=== PATIENT | male | born 1970 | race Caucasian/White ===

== ENCOUNTER 2024-08-11 03:45 | Observation (INO) ==
[2024-08-11] MEDS: IPRATROPIUM/ALBUTEROL SULFATE 3 ML AMPUL.NEB INH ONE ×2 (04:09→06:08)
[2024-08-11] MEDS: METHYLPREDNISOLONE SOD SUCC/PF 125 MG/2 ML VIAL IVP ONE (04:11)
[2024-08-11 04:25] LABS: Basophils #(Absolute) Auto 0.1 (0.0-0.1); Basophils%(Percent) Auto 1.1 (0.0-1.3); Eosinophils#(Absolute)Auto 0.3 (0.0-0.3); Eosinophils%(Percent) Auto 2.7 % (0.0-4.0); Granulocytes % - Auto 71.1 % (49.1-73.1); Granulocytes#(Absolute)- Auto 7.4 (2.0-6.2); Hematocrit 40.8 % (41.3-50.1); Monocytes #(Absolute)- Auto 0.7 (0.2-0.8); Monocytes %(Percent)- Auto 6.3 % (4.5-10.7); Platelet Count 250 K/uL (142-355); White Blood Count 10.4 K/uL (3.7-9.6)
[2024-08-11 05:24] LABS: Potassium 3.9 mmol/L (3.6-5.2)
[2024-08-11] MEDS: ONDANSETRON HCL/PF 4 MG/2 ML VIAL IVP ONE (05:57)
--- NOTE | 2024-08-11 05:58 | Emergency Department Note ---
HPI - General Adult General Chief complaint: SOB -Shortness of Breath Stated complaint: difficulty breathing Time Seen by Provider: 08/11/24 05:53 Source: patient Mode of arrival: walk-in Limitations: no limitations History of Present Illness HPI narrative: This is s a 53 year old male patient that presents to the ER with c/o cough, congestion, nausea and SOB. patient denies back pain, abdominal pain, chest pain , numbness, tingling or weakness. patient states his cough is a dry hacky cough Onset (ago): day(s) (2) Associated symptoms: Reports cough and shortness of breath Treatments prior to arrival: Reports none Related Data Previous Rx's Medication Instructions Recorded erythromycin 5 mg/gram (0.5 %) eye 0.5 inch ophthalmic (eye) TID 12/11/23 ointment abrasion #3.5 grams ketorolac 10 mg tablet 10 mg PO Q6H PRN pain #20 ta bs 05/06/24 ondansetron 4 mg disintegrating 4 mg PO Q6H PRN nausea and 06/09/24 tablet vomiting #12 tabs tramadol 50 mg tablet 50 mg PO TID PRN pain #15 ta bs 06/09/24 Allergies Allergy/AdvReac Type Severity Reaction Status Date / Time No Known Drug Allergies Allergy Verified 08/11/24 03:54 Review of Systems Status of ROS 10 or more systems reviewed and unremark able except as noted in history and below Constitutional Denies: fever, chills, change in weight, fatigue, malaise, night sweats or change in sleep pattern Eyes Denies: change in vision, blurry vision, blind spots, light sensitivity, eye discomfort, eye discharge or dry eyes Ears, nose, mouth, and throat Denies: throat pain, neck pain, throat swelling, difficulty swallowing, hoarseness, mouth pain, swelling of lips/tongue or dry mouth Cardiovascular Reports: shortness of breath with exertion; Denies: chest pain, palpitations, edema, swelling of feet/ankles, lightheadedness, shortness of breath when lying down, leg pain with exertion or bluish discoloration of hands/feet Respiratory Reports: shortness of breath, cough and wheezing; Denies: stridor, pain on inspiration, change in phlegm color or coughing up blood Gastrointestinal Denies: abdominal pain, nausea, vomiting, coffee grounds in vomit, heartburn, diarrhea, constipation or bloating Genitourinary Denies: painful urination, urinary frequency, urinary urgency, blood in urine, genital pain or genital lesion Musculoskeletal Denies: back pain, neck pain, extremity pain, extremity swelling, joint pain, limited range of motion or joint swelling Integumentary/Breast Denies: rash, itching, redness, skin pain, skin ten derness, skin swelling, sores or new lesion Neurological Denies: headache, numbness in extremities, weakness in extremities, lack of coordination, dizziness, vertigo or confusion Psychiatric Denies: anxiety, mood swings, panic attacks, change in sleep pattern, hopelessness or loss of interest Endocrine Denies: excessive urination, excessive thirst, fatigue, cold intolerance or excessive sweating Hematologic/Lymphatic Denies: easy bruising, easy bleeding or enlarged lymph nodes Allergic/Immunologic Denies: hives, throat swelling, tongue swelling, facial swelling, wheezing or itchy eyes PFSH PFS Medical History Patient denies medical problems Surgical History No significant past surgical history Social History (Updated 12/11/23 @ 14:59 by Chuck Serrano NP) Smoking status: current every day smoker Feel stressed/tense/nervous/anxious/difficulty sleeping: rather much Life stressors: other Life stressor details: 1 Due to disability, difficulty making decisions: No Exam Constitutional: normal general appearance and no apparent distress Vital Signs - 24 hr 08/11/24 03:53 08/11/24 04:21 08/11/24 04:30 Temperature 97.5 F L 97.5 F L Pulse Rate 110 H 78 Respiratory Rate 22 20 Blood Pressure 124/94 129/93 Pulse Oximetry 94 L 94 L 94 L Oxygen Delivery Me thod Room Air Room Air 08/11/24 05:00 08/11/24 05:30 08/11/24 06:00 Temperature 97.5 F L Pulse Rate 55 L 68 63 Respiratory Rate 22 22 22 Blood Pressure 128/87 124/94 135/89 Pulse Oximetry 94 L 94 L 94 L Oxygen Delivery Me thod Room Air Room Air Room Air 08/11/24 06:08 08/11/24 06:31 08/11/24 07:00 Temperature 97.9 F Pulse Rate 58 L 99 H Respiratory Rate 24 20 Blood Pressure 143/92 129/74 Pulse Oximetry 94 L 94 L 94 L Oxygen Delivery Me thod Room Air 08/11/24 07:49 08/11/24 09:00 Temperature Pulse Rate 88 Respiratory Rate Blood Pressure 126/90 Pulse Oximetry 97 95 Oxygen Delivery Pa thod Room Air HENMT: normocephalic, head/scalp atraumatic, hearing grossly normal bilaterally, external ears normal, EACs normal, nasal mucous membranes normal, external nose normal, oral mucous membranes normal and oropharynx normal Eyes: PERRL, EOMs intact bilaterally, conjunctivae normal and no scleral icterus Neck/C-Spine: visual inspection normal and trachea midline Lymph: no lymphadenopathy noted Chest: inspection of chest normal and palpation of chest normal Respiratory: breath sounds equal bilaterally, normal respiratory effort, auscultation abnormal (diminished breath sound), wheezing noted (scattered wheezes), no rales, no retractions, no use of accessory muscles and chest percussion normal Cardiovascular: normal heart rate noted, regular rhythm noted, no gallop, no rub, no murmur, no JVD, no clicks, peripheral pulses 2+ throughout, no bruits noted and no additional abnormal heart sounds Gastrointestinal: abdomen normal to inspection, abdomen soft to palpation, nontender to palpation, nontender to percussion, nondistended, normoactive bowel sounds, no hepatosplenomegaly, no masses, no pulsatile mass, no ascites and no hernia Genitourinary: no CVA tenderness Back/Pelvis: spine normal to inspection Extremities: normal to inspection, normal to palpation, no tenderness, full R OM and no joint enlargement Neurology: no movement abnormality noted, no focal motor deficit noted, no sensory deficits noted, gait normal, speech normal, coordination normal, no pronator drift noted, no fasciculations noted and GCS normal Psychiatry: mental status grossly normal, oriented x3, thought process normal and cooperative Skin: skin color normal Course Course Hospital Course: 711: patient LS improved after meds and nebs, patient states he still feels a little SOB, new orders given 0800: signed patient over to Collin Magana [employer]ACH[employer]ER for continued care Patient turned over to va at shift change. Repeat Troponin again trending downards. Likely first elevated troponin secondary to demand ischemia from respiratory distress/COPD exacerbation. CXR, CTA, labs reviewed. Patient discussed with UR and Hospitalist for admission to observation for further treatment regarding COPD exacerbation. Reevaluation(s) Reevaluation #1: Discussed pending troponin repeat and admission vs transfer. Patient resistant to admission but states "I'll stay if I need to." Resting comfortably, in no distress. Time: 08:41 Vital Signs Vital signs: Vital Signs Temperature 97.5 F L 08/11/24 03:53 Pulse Rate 110 H 08/11/24 03:53 Respiratory Rate 22 08/11/24 03:53 Blood Pressure 124/94 08/11/24 03:53 Pulse Oximetry 94 L 08/11/24 03:53 Oxygen Delivery Method Room Air 08/11/24 03:53 Temperature 97.9 F 08/11/24 06:31 Pulse Rate 88 08/11/24 09:00 Respiratory Rate 20 08/11/24 07:00 Blood Pressure 126/90 08/11/24 09:00 Pulse Oximetry 95 08/11/24 09:00 Oxygen Delivery Method Room Air 08/11/24 09:00 Medical Decision Making Lab Data Labs: Lab Results 08/11/24 08/11/24 08/11/24 Range/Units 04:00 04:15 06:35 WBC 10.4 H (3.7-9.6) K/uL RBC 4.8 (4.40-5.80) M/uL Hgb 13.4 L (14.0-17.4) gm/dL Hct 40.8 L (41.3-50.1) % MCV 86.0 (81.9-96.5) fl MCH 28.2 (27.6-33.7) pg MCHC 32.8 L (33.0-35.7) g/dl RDW 14.1 (11.0-14.8) % Plt Count 250 (142-355) K/uL MPV 9.5 (6.0-10.4) fl Gran % 71.1 (49.1-73.1) % Lymph % (Auto) 18.8 (17.6-39.05) % [place] % (Auto) 6.3 (4.5-10.7) % Eos % (Auto) 2.7 (0.0-4.0) % Baso % (Auto) 1.1 (0.0-1.3) Lymph # (Auto) 2.0 (0.8-2.9) [place] # (Auto) 0.7 (0.2-0.8) Eos # (Auto) 0.3 (0.0-0.3) Baso # (Auto) 0.1 (0.0-0.1) Absolute Gran (auto) 7.4 H (2.0-6.2) D-Dimer 533 (100-600) ng/mL Sodium 143 (136-145) mmol/L Potassium 3.9 (3.6-5.2) mmol/L Chloride 111.0 H (98-107) mmol/L Carbon Dioxide 21 (21-32) mmol/L Anion Gap 11.0 (4-14) mEq/L BUN 27 H (7-18) mg/dL Creatinine 1.1 (0.6-1.3) mg/dL Estimated GFR 80.8 (>59.9) Glucose 83 (70-110) mg/dL Lactic Acid 0.8 (0.27-1.43) mmol/L Calcium 8.3 L (8.5-10.1) mg/dL Total Bilirubin 0.53 (0.0-1.0) mg/dL AST 18 (15-37) U/L ALT 30 (30-65) U/L Alkaline Phosphatase 110 (50-136) U/L Troponin I High Sens 70.60 H* 59.10 (4.0-60.4) ng/L B-Natriuretic Peptide 105.0 H (0-100) pg/mL Total Protein 6.8 (6.4-8.2) g/dL Albumin 3.3 L (3.4-5.0) g/dL COVID-19 ([facility]) Not detected (Not Detectd) Influenza Type A Ag Negative (Negative) Influenza Type B Ag Negative (Negative) 08/11/24 Range/Units 08:40 WBC (3.7-9.6) K/uL RBC (4.40-5.80) M/uL Hgb (14.0-17.4) gm/dL Hct (41.3-50.1) % MCV (81.9-96.5) fl MCH (27.6-33.7) pg MCHC (33.0-35.7) g/dl RDW (11.0-14.8) % Plt Count (142-355) K/uL MPV (6.0-10.4) fl Gran % (49.1-73.1) % Lymph % (Auto) (17.6-39.05) % [place] % (Auto) (4.5-10.7) % Eos % (Auto) (0.0-4.0) % Baso % (Auto) (0.0-1.3) Lymph # (Auto) (0.8-2.9) [place] # (Auto) (0.2-0.8) Eos # (Auto) (0.0-0.3) Baso # (Auto) (0.0-0.1) Absolute Gran (auto) (2.0-6.2) D-Dimer (100-600) ng/mL Sodium (136-145) mmol/L Potassium (3.6-5.2) mmol/L Chloride (98-107) mmol/L Carbon Dioxide (21-32) mmol/L Anion Gap (4-14) mEq/L BUN (7-18) mg/dL Creatinine (0.6-1.3) mg/dL Estimated GFR (>59.9) Glucose (70-110) mg/dL Lactic Acid (0.27-1.43) mmol/L Calcium (8.5-10.1) mg/dL Total Bilirubin (0.0-1.0) mg/dL AST (15-37) U/L ALT (30-65) U/L Alkaline Phosphatase (50-136) U/L Troponin I High Sens 43.90 (4.0-60.4) ng/L B-Natriuretic Peptide (0-100) pg/mL Total Protein (6.4-8.2) g/dL Albumin (3.4-5.0) g/dL COVID-19 ([facility]) (Not Detectd) Influenza Type A Ag (Negative) Influenza Type B Ag (Negative) Critical Care Time Critical Care Time Critical Care Time: Yes Total Critical Care Time: 45 Attestation: I spent 45 minutes of critical care time with this patient, exclusive of any procedures. Discharge Plan Discharge Patient Disposition: Admitted As Observation Condition: Stable Clinical Impression: Chronic obstructive pulmonary disease with acute exacerbation, Acute respiratory distress syndrome Time of Disposition: 09:44
[2024-08-11] MEDS: BUDESONIDE 0.5 MG/2 ML AMPUL.NEB INH ONE (06:08)
[2024-08-11] MEDS ORDERED: CEFTRIAXONE SODIUM 1 GM VIAL ONE (07:07)
[2024-08-11] MEDS ORDERED: 0.9 % SODIUM CHLORIDE MB+ 50 ML IV ONE (07:07)
[2024-08-11] MEDS: CEFTRIAXONE SODIUM 1 GM in 0.9 % SODIUM CHLORIDE MB+ 50 ML IV ONE (07:09)
[2024-08-11] MEDS: levalbuterol HCL 1.25 MG/3 ML VIAL.NEB INH ONE (07:49)
[2024-08-11] MEDS ORDERED: ACETAMINOPHEN 500 MG TABLET PO PRN (12:18)
[2024-08-11] MEDS ORDERED: ONDANSETRON HCL/PF 4 MG/2 ML VIAL INJ PRN (12:18)
[2024-08-11] MEDS ORDERED: DOCUSATE SODIUM 100 MG CAPSULE PO PRN (13:30)
[2024-08-11] MEDS ORDERED: MAGNESIUM, ALUMINUM HYDROXIDE 30 ML ORAL.SUSP PO PRN (13:30)
[2024-08-11] MEDS: CEFTRIAXONE SODIUM 1 GM in 0.9 % SODIUM CHLORIDE MB+ 50 ML IV SCH (14:42)
[2024-08-11] MEDS: METHYLPREDNISOLONE SOD SUCC/PF 40 MG/ML VIAL INJ SCH (15:13)
[2024-08-11] MEDS: AZITHROMYCIN 250 MG TABLET PO SCH (15:13)
--- NOTE | 2024-08-11 15:38 | History & Physical Report ---
H&P: HPI History of Present Illness Chief complaint: COPD ACUTE EXACERBATION, ACUTE RESP DISTRESS,ELEVA Narrative: Mr. Lara was admitted on 08/11/24 with acute SOB that started during the night. Labs unremarkable. CXR, CTA did show emphysema and negative for PE. Patient does smoke 1-2 ppd denies hx of lung disease or any other medical hx other than back pain. He does admit to some cough with green sputum which he attributes to smoking. He no longer has seen PCP and last saw one last year with normal findi ngs. He does not use home O2 but was placed on O2 in the ED, received mag, nebs, and solumedrol which he did have some relief. Review of Systems Status of ROS 10 or more systems reviewed and unremark able except as noted in history and below Constitutional Denies: fever, chills, change in weight, fatigue, malaise, night sweats or change in sleep pattern Eyes Denies: change in vision, blurry vision, blind spots, light sensitivity, eye discomfort, eye discharge or dry eyes Ears, nose, mouth, and throat Denies: throat pain, neck pain, throat swelling, difficulty swallowing, hoarseness, mouth pain, swelling of lips/tongue, dry mouth or vertigo Cardiovascular Reports: shortness of breath with exertion; Denies: chest pain, palpitations, edema, swelling of feet/ankles, lightheadedness, shortness of breath when lying down, leg pain with exertion or bluish discoloration of hands/feet Respiratory Reports: shortness of breath and cough; Denies: wheezing, stridor, pain on inspiration, change in phlegm color or coughing up blood Gastrointestinal Denies: abdominal pain, nausea, vomiting, coffee grounds in vomit, heartburn, diarrhea, constipation, bloating or difficulty swallowing Genitourinary Denies: painful urination, urinary frequency, urinary urgency, blood in urine, genital pain or genital lesion Musculoskeletal Denies: back pain, neck pain, extremity pain, extremity swelling, joint pain, limited range of motion or joint swelling Integumentary/Breast Denies: rash, itching, redness, skin pain, skin tenderness, skin swelling, sores or new lesion Neurological Denies: headache, numbness in extremities, weakness in extremities, lack of coordination, dizziness, vertigo or confusion Psychiatric Denies: anxiety, mood swings, panic attacks, change in sleep pattern, hopelessness or loss of interest Endocrine Denies: excessive urination, excessive thirst, fatigue, cold intolerance or excessive sweating Hematologic/Lymphatic Denies: easy bruising, easy bleeding or enlarged lymph nodes Allergic/Immunologic Denies: hives, throat swelling, tongue swelling, facial swelling, wheezing or itchy eyes PFSH PFS Medical History (Updated 08/11/24 @ 15:42 by Oh William NP) Emphysema (subcutaneous) (surgical) resulting from a procedure Patient denies medical problems Surgical History No significant past surgical history Social History (Updated 12/11/23 @ 14:59 by Chuck Serrano NP) Smoking status: current every day smoker Problems where you live: no known problems Highest level of school completed/degree received: high school Feel stressed/tense/nervous/anxious/difficulty sleeping: rather much Life stressors: other Life stressor details: 1 Due to disability, difficulty making decisions: No Meds Home Medications and Allergies Allergies Allergy/AdvReac Type Severity Reaction Status Date / Time No Known Drug Allergies Allergy Verified 08/11/24 03:54 Exam Constitutional: normal general appearance and no apparent distress Vital Signs - 24 hr 08/11/24 03:53 08/11/24 04:21 08/11/24 04:30 Temperature 97.5 F L 97.5 F L Pulse Rate 110 H 78 Pulse Rate [Left] Respiratory Rate 22 20 Blood Pressure 124/94 129/93 Blood Pressure [Le ft Arm] Pulse Oximetry 94 L 94 L 94 [facility] Oxygen Flow Rate 08/11/24 05:00 08/11/24 05:30 08/11/24 06:00 Temperature 97.5 F L Pulse Rate 55 L 68 63 Pulse Rate [Left] Respiratory Rate 22 22 22 Blood Pressure 128/87 124/94 135/89 Blood Pressure [Le ft Arm] Pulse Oximetry 94 L 94 L 94 [facility] Room Air Room Air Oxygen Flow Rate 08/11/24 06:08 08/11/24 06:31 08/11/24 07:00 Temperature 97.9 F Pulse Rate 58 L 99 H Pulse Rate [Left] Respiratory Rate 24 20 Blood Pressure 143/92 129/74 Blood Pressure [Le ft Arm] Pulse Oximetry 94 L 94 L 94 L Oxygen Delivery Me thod Room Air Oxygen Flow Rate 08/11/24 07:49 08/11/24 09:00 08/11/24 09:45 Temperature Pulse Rate 88 Pulse Rate [Left] Respiratory Rate Blood Pressure 126/90 Blood Pressure [Le ft Arm] Pulse Oximetry 97 95 93 L Oxygen Delivery Me thod Room Air Nasal Cannula Oxygen Flow Rate 2 08/11/24 10:00 08/11/24 11:00 08/11/24 11:30 Temperature Pulse Rate 111 H 111 H 114 H Pulse Rate [Left] Respiratory Rate 15 20 15 Blood Pressure 125/84 120/86 114/84 Blood Pressure [Le ft Arm] Pulse Oximetry 96 97 97 Oxygen Delivery Me thod Nasal Cannula Nasal Cannula Nasal Cannula Oxygen Flow Rate 2 2 2 08/11/24 11:54 08/11/24 12:19 Temperature 97.9 F 97.4 F L Pulse Rate 114 H Pulse Rate [Left] 79 Respiratory Rate 15 19 Blood Pressure 114/84 Blood Pressure [Le ft Arm] 109/71 Pulse Oximetry 97 96 Oxygen Delivery Me thod Nasal Cannula Oxygen Flow Rate 2 HENMT: normocephalic, head/scalp atraumatic, hearing grossly normal bilaterally, external ears normal, EACs normal, nasal mucous membranes normal, external nose normal, oral mucous membranes normal and oropharynx normal Eyes: PERRL, EOMs intact bilaterally, conjunctivae normal and no scleral icterus Neck/C-Spine: visual inspection normal and trachea midline Lymph: no lymphadenopathy noted Chest: inspection of chest normal and palpation of chest normal Respiratory: breath sounds equal bilaterally, normal respiratory effort, auscultation abnormal (diminished breath sound), wheezing noted (scattered wheezes), no rales, no retractions, no use of accessory muscles and chest percussion normal Cardiovascular: normal heart rate noted, regular rhythm noted, no gallop, no rub, no murmur, no JVD, no clicks, peripheral pulses 2+ throughout, no bruits noted and no additional abnormal heart sounds Gastrointestinal: abdomen normal to inspection, abdomen soft to palpation, nontender to palpation, nontender to percussion, nondistended, normoactive bowel sounds, no hepatosplenomegaly, no masses, no pulsatile mass, no ascites and no hernia Genitourinary: no CVA tenderness Back/Pelvis: spine normal to inspection Extremities: normal to inspection, normal to palpation, no tenderness, full ROM and no joint enlargement Neurology: no movement abnormality noted, no focal motor deficit noted, no sensory deficits noted, gait normal, speech normal, coordination normal, no pronator drift noted, no fasciculations noted and GCS normal Psychiatry: mental status grossly normal, oriented x3, thought process normal and cooperative Skin: skin color normal Assessment and Plan Assessment and Plan (1) Emphysema (subcutaneous) (surgical) resulting from a procedure: Code(s): T81.82XA - Emphysema (subcutaneous) resulting from a procedure, initial encounter Plan Admit Regular diet VS q4hrs Zpak Rocephin 1gm IV daily Solumedrol 40mg IV q6hrs Duoneb q4hrs Pulmicort BID CBC CMP in AM Results Labs Labs: CBC 08/11/24 Range/Units 04:15 WBC 10.4 H (3.7-9.6) K/uL RBC 4.8 (4.40-5.80) M/uL Hgb 13.4 L (14.0-17.4) gm/dL Hct 40.8 L (41.3-50.1) % Plt Count 250 (142-355) K/uL Gran % 71.1 (49.1-73.1) % Lymph % (Auto) 18.8 (17.6-39.05) % [place] % (Auto) 6.3 (4.5-10.7) % Eos % (Auto) 2.7 (0.0-4.0) % Baso % (Auto) 1.1 (0.0-1.3) Lymph # (Auto) 2.0 (0.8-2.9) [place] # (Auto) 0.7 (0.2-0.8) Eos # (Auto) 0.3 (0.0-0.3) Baso # (Auto) 0.1 (0.0-0.1) Absolute Gran (auto) 7.4 H (2.0-6.2) CMP 08/11/24 04:15 Sodium 143 Potassium 3.9 Chloride 111.0 H Carbon Dioxide 21 BUN 27 H Creatinine 1.1 Glucose 83 Calcium 8.3 L Liver Function 08/11/24 Range/Units 04:15 Total Bilirubin 0.53 (0.0-1.0) mg/dL AST 18 (15-37) U/L ALT 30 (30-65) U/L Alkaline Phosphatase 110 (50-136) U/L Albumin 3.3 L (3.4-5.0) g/dL Imaging Imaging ordered: Chest x-ray and CT scan - chest Radiologist's impression: Patient: Earl Lara MR#: [id number] : 1970 Acct:[id number] Age/Sex: 53 / M ADM Date: 08/11/24 Loc: ED Attending Dr: Ordering Physician: Lesly Preciado Date of Service: 08/11/24 Procedure(s): XR chest 1V Accession Number(s): [id number] cc: Lesly Preciado~ EXAM: Portable chest HISTORY: Shortness of breath COMPARISON: None FINDINGS: Heart size is normal. Dilma are normal. The interstitium is prominent and there are Sergio's B-lines present. Without previous films with which to compare of the duration of this finding is unclear. If acute it could represent interstitial pulmonary edema, acute pneumonitis or atypical pneumonia. Some or all of this finding could be chronic. There appear to be some peribronchial infiltrates in the medial right lung base suggestive either focal developing bronchopneumonia or a asymmetric area of alveolar edema. Clinical and laboratory correlation recommended. No pneumothorax identified. The small left pleural effusion may be present. IMPRESSION: Diffuse prominent interstitial lung changes of uncertain duration. Some differential diagnostic possibilities given above Focal area of peribronchial infiltrate in the medial right lung base which could represent a developing focal bronchopneumonia or asymmetric focus of developing alveolar edema. Clinical and laboratory correlation recommended. Follow-up until complete resolution recommended. THIS IS AN ELECTRONICALLY VERIFIED FINAL REPORT 08/11/2024 7:23 AM - Electronically signed by Ronen Stephenson MD Dictated By: Sachin DONOHUE, Ronen Givens Signed By: Patient: Earl Lara MR#: [id number] : 1970 Acct:[id number] Age/Sex: 53 / M ADM Date: 08/11/24 Loc: ED Attending Dr: Ordering Physician: Lesly Preciado Date of Service: 08/11/24 Procedure(s): CT angio chest PE protocol Accession Number(s): [id number] cc: Provider,NO PCP; Lesly Preciado~ EXAM: CT PULMONARY ANGIOGRAM CHEST WITH CONTRAST (PE PROTOCOL) HISTORY: SHORTNESS OF BREATH; CV COMPARISON: Chest x-ray from same date. TECHNIQUE: Axial CT images were obtained through the chest after the intravenous administration of IV contrast. Coronal reformatted images were included. Maximum intensity projection (MIP) images were performed per pulmonary angiogram protocol. Informed written consent was obtained prior to contrast administration. All CT scans at this facility use dose modulation, iterative reconstruction, and/or weight based dosing when appropriate to reduce radiation dose to as low as reasonably achievable. FINDINGS: No evidence of pulmonary embolism. Cardiomegaly. Normal caliber thoracic aorta and main pulmonary artery. No pericardial effusion. No thoracic lymphadenopathy. Trachea is midline and central airways are patent. Moderate paraseptal emphysema. Interlobular septal thickening. Mild scattered hazy airspace opacities. Small layering pleural effusions. No pneumothorax. No acute osseous findings. Osteopenia and multilevel degenerative disc disease. No acute findings in the visualized upper abdomen. IMPRESSION: 1. Cardiomegaly with pulmonary edema and small pleural effusions. 2. No evidence of pulmonary embolism. 3. Moderate paraseptal emphysema. THIS IS AN ELECTRONICALLY VERIFIED FINAL REPORT 08/11/2024 6:40 AM - Electronically signed by Juan Galvan MD Dictated By: Juan Galvan M.D. Signed By:
[2024-08-11] MEDS: IPRATROPIUM/ALBUTEROL SULFATE 3 ML AMPUL.NEB INH SCH (15:46)
[2024-08-11] MEDS ORDERED: METHYLPREDNISOLONE SOD SUCC/PF 40 MG/ML VIAL ONE (19:57)
[2024-08-11] MEDS: BUDESONIDE 0.5 MG/2 ML AMPUL.NEB INH SCH (20:24)
[2024-08-12 05:52] LABS: Eosinophils#(Absolute)Auto 0.1 (0.0-0.3)
[2024-08-12 05:54] LABS: Basophils%(Percent) Auto 0.5 (0.0-1.3); Eosinophils%(Percent) Auto 1.1 % (0.0-4.0); Granulocytes % - Auto 77.8 % (49.1-73.1); Hematocrit 37.2 % (41.3-50.1); Mean Corpuscular Volume 98.4 fl (81.9-96.5); Monocytes #(Absolute)- Auto 0.6 (0.2-0.8); Monocytes %(Percent)- Auto 6.9 % (4.5-10.7); Platelet Count 382 K/uL (142-355)
[2024-08-12] MEDS: CEFTRIAXONE SODIUM 1 GM in 0.9 % SODIUM CHLORIDE MB+ 50 ML IV SCH (09:16)
[2024-08-12] MEDS: METHYLPREDNISOLONE SOD SUCC/PF 125 MG/2 ML VIAL INJ SCH (11:36)
[2024-08-12 12:06] VITALS: BP 112/77; PULSE 120; RESP 17; TEMP 97.5
[2024-08-12] MEDS ORDERED: PANTOPRAZOLE SODIUM 40 MG TABLET.DR PO SCH (13:30)
--- NOTE | 2024-08-12 13:43 | Discharge Summary ---
DS: Providers Provider Date of admission: 08/11/24 10:23 Primary care physician: NO PCP Provider DS: Diagnosis Discharge Diagnosis (1) Emphysema of lung: (2) Leukocytosis (leucocytosis): (3) Anemia: (4) Elevated troponin I level: (5) Cardiomegaly: (6) COPD exacerbation: (7) COPD (chronic obstructive pulmonary disease): DS: Summary Hospital Course Hospital Course: Mr. Lara is a 53 year old male admitted on 08/11/24 after presenting to the ER for c/o dry cough, congestion, nausea and SOB x 2 days. Patient denied back pain, abdominal pain, chest pain, numbness, tingling or weakness. Initial CXR revealed Diffuse prominent interstitial lung changes of uncertain duration..Focal area of peribronchial infiltrate in the medial right lung base which could represent a developing focal bronchopneumonia or asymmetric focus of developing alveolar edema. CTA revealed cardiomegaly with pulmonary edema and small pleural effusions. No evidence of pulmonary embolism. Moderate paraseptal emphysema. Initial CBC revealed mildly elevated WBC at 10.4. Patient treated with Rocephin 1 gram IV and Azithromycin 500mg po daily, DuoNebs, and Solumedrol. Initial troponin 70.60. Serial troponins followed and trending downward with the last being 41.10 at 1830 on 08/11/24. Patient reports feeling better and is requesting discharge today. Time spent discussing smoking cessation with patient: more than 10 minutes Status at Discharge Functional status at discharge: independent ambulation Overall status at discharge: patient is progressing back to baseline Time Spent with Patient Time attestation: Total time spent providing and/or coordinating discharge services: Time spent: greater than 30 minutes Exam Constitutional: normal general appearance, no apparent distress, no limitations and alert Vital Signs - 24 hr 08/11/24 15:46 08/11/24 16:23 08/11/24 20:00 Temperature 97.6 F 98.2 F Pulse Rate [Left] 117 H 116 H Respiratory Rate 19 17 Blood Pressure [Le ft Arm] 118/80 109/75 Pulse Oximetry 98 99 96 Oxygen Delivery Me thod Room Air Room Air Oxygen Flow Rate Fraction of Inspir ed Oxygen 08/11/24 20:24 08/11/24 20:36 08/12/24 00:00 Temperature 98.1 F Pulse Rate [Left] 123 H Respiratory Rate 24 Blood Pressure [Le ft Arm] 130/65 Pulse Oximetry 95 95 96 Oxygen Delivery Me thod Nasal Cannula Nasal Cannula Oxygen Flow Rate 2 Fraction of Inspir ed Oxygen 28 08/12/24 00:08 08/12/24 04:05 08/12/24 05:51 Temperature 98.2 F Pulse Rate [Left] 133 H Respiratory Rate 20 Blood Pressure [Le ft Arm] 116/71 Pulse Oximetry 96 96 96 Oxygen Delivery Me thod Room Air Oxygen Flow Rate Fraction of Inspir ed Oxygen 08/12/24 07:39 08/12/24 08:00 08/12/24 12:00 Temperature 98.4 F 97.5 F L Pulse Rate [Left] 115 H 120 H Respiratory Rate 20 17 Blood Pressure [Le ft Arm] 108/65 112/77 Pulse Oximetry 95 98 96 Oxygen Delivery Me thod Room Air Room Air Oxygen Flow Rate Fraction of Inspir ed Oxygen HENMT: normocephalic, head/scalp atraumatic, hearing grossly normal bilaterally, external ears normal and external nose normal Neck/C-Spine: visual inspection normal and trachea midline Lymph: no lymphadenopathy noted and no lymphedema noted Chest: inspection of chest normal and palpation of chest normal Respiratory: normal respiratory effort, no wheezes, no rales, no retractions and no use of accessory muscles Diminished bilateral lobes. Cardiovascular: normal heart rate noted, no gallop, no rub, no murmur, no JVD, no clicks and peripheral pulses 2+ throughout Gastrointestinal: abdomen normal to inspection, abdomen soft to palpation, nontender to palpation, nontender to percussion, nondistended and normoactive bowel sounds Genitourinary: no CVA tenderness Back/Pelvis: spine normal to inspection Extremities: normal to inspection and normal to palpation Psychiatry: Mental Status Exam documented in the separate MSE mental status grossly normal, oriented x3, thought process normal, cooperative, affect normal, psychomotor activity normal and memory normal Feel stresse d/tense/nervous/anxious/difficulty sleeping: only a little Life stressor details: Declines to elaborate. Skin: skin color normal DS: Data Data Completed and Pending Labs on day of discharge: Labs from last 24 hours 08/12/24 08/11/24 05:50 18:30 WBC 9.0 RBC 3.8 L Hgb 12.2 L Hct 37.2 L MCV 98.4 H MCH 32.2 MCHC 32.7 L RDW 23.4 H Plt Count 382 H MPV 7.1 Gran % 77.8 H Lymph % (Auto) 13.7 L [place] % (Auto) 6.9 Eos % (Auto) 1.1 Baso % (Auto) 0.5 Lymph # (Auto) 1.2 [place] # (Auto) 0.6 Eos # (Auto) 0.1 Baso # (Auto) 0.0 Absolute Gran (auto) 7.0 H Sodium 142 Potassium 4.0 Chloride 106.0 Carbon Dioxide 22 Anion Gap 14.0 BUN 11 Creatinine 1.2 Estimated GFR 72.8 Glucose 81 Calcium 8.2 L Troponin I High Sens 41.10 Discharge Plan Discharge Disposition: Home, Self-Care Condition: Stable Discharge Medications: New azithromycin 250 mg Tablet 500 mg PO DAILY 1 Days Qty: 2 0RF budesonide-formoterol [Symbicort] 160-4.5 mcg/actuation HFA aerosol inhaler 2 puff inhalation BID Qty: 10.2 0RF methylprednisolone [Medrol (Toy)] 4 mg tablets,dose pack See Rx Instructions .ROUTE .COMPLEX Qty: 21 0RF Rx Instructions: for 6 days Discharge Orders: Discharge Order (Routine); Ordered 08/12/24 Ordered By: Michelle Austin Activity: increase activity as tolerated Diet: advance to your usual diet Interventions: Discharge Assessment Last Done: 08/12/24 14:20 MED/SURG & ICU Observation Charge Sheet Last Done: 08/12/24 14:23 Patient Instructions: COPD (Chronic Obstructive Pulmonary Disease) (DC) Activity Restrictions/Additional Instructions: RESUME ANY HOME MEDICATIONS PRIOR TO ADMISSION. FOLLOW-UP WITH PCP OF YOUR CHOICE WITHIN 5-7 DAYS. Forms: Portal/Health Info Access Inst Follow-Ups: Provider,NO PCP [Primary Care Provider, Adminstration] Discharge Date/Time: 08/12/24 16:24
[2024-08-12] MEDS: BUDESONIDE/FORMOTEROL FUMARATE 160/4.5 MCG INH SCH (15:14)
== END 2024-08-12 16:24 | disposition home or self-care (01) ==
LOC: ED 03:45 → MS 03:45
PROVIDERS: ADMIT Nurse Practitioner; ATTEND Nurse Practitioner
DX: D64.9 Anemia, unspecified; J90 Pleural effusion, not elsewhere classified; Z79.51 Long term (current) use of inhaled steroids; J44.1 Chronic obstructive pulmonary disease with (acute) exacerbation; J80 Acute respiratory distress syndrome; J43.8 Other emphysema; D72.829 Elevated white blood cell count, unspecified; I51.7 Cardiomegaly; R79.89 Other specified abnormal findings of blood chemistry; F17.200 Nicotine dependence, unspecified, uncomplicated